=== PATIENT | female | born 1965 | race Hispanic/Latino ===

== ENCOUNTER 2018-04-12 11:55 | Outpatient (CLI) | payer OTHER | END 2018-04-12 11:56 | disposition home or self-care (01) | LOC: BICMAMMO 11:55 | PROVIDERS: ATTEND Family Medicine | DX: Z12.31 Encounter for screening mammogram for malignant neoplasm of breast (principal) | CPT/HCPCS: 77063; 77067 ==

== ENCOUNTER 2021-02-06 10:28 | Outpatient (CLI) | payer OTHER | END 2021-02-06 10:29 | disposition home or self-care (01) | PROVIDERS: ATTEND Family Medicine | DX: R13.10 Dysphagia, unspecified (principal); R63.3 Feeding difficulties | CPT/HCPCS: 74230 ==

== ENCOUNTER 2021-02-27 08:53 | Outpatient (CLI) | payer OTHER ==
[2021-02-27] MEDS ORDERED: Iopamidol 370 76% 100 ML VIAL ONE (10:07)
== END 2021-02-27 08:54 | disposition home or self-care (01) ==
LOC: BICCT 08:53
PROVIDERS: ATTEND Otolaryngology Plastic Surgery within the Head & Neck
DX: M50.20 Other cervical disc displacement, unspecified cervical region (principal); R13.10 Dysphagia, unspecified
CPT/HCPCS: 70491; Q9967

== ENCOUNTER 2021-03-12 11:46 | Outpatient (CLI) | payer OTHER | END 2021-03-12 11:47 | disposition home or self-care (01) | LOC: RAD 11:46 | PROVIDERS: ATTEND Internal Medicine Critical Care Medicine | DX: R06.00 Dyspnea, unspecified (principal) | CPT/HCPCS: 71046 ==

== ENCOUNTER 2023-01-13 10:56 | Outpatient (CLI) | payer BC | END 2023-01-13 10:57 | disposition home or self-care (01) | LOC: BICMAMMO 10:56 | PROVIDERS: ATTEND Family Medicine | DX: Z12.31 Encounter for screening mammogram for malignant neoplasm of breast (principal) | CPT/HCPCS: 77063; 77067 ==

== ENCOUNTER 2024-03-20 14:29 | Outpatient (CLI) | payer BC | END 2024-03-20 14:30 | disposition home or self-care (01) | LOC: BICMAMMO 14:29 | PROVIDERS: ATTEND Family Medicine | DX: Z78.0 Asymptomatic menopausal state (principal) | CPT/HCPCS: 77080 ==